=== PATIENT | female | born 1945 | race Caucasian/White ===

== ENCOUNTER 2020-11-10 08:52 | Emergency (ER) | payer SELFPAY ==
--- NOTE | 2020-11-10 09:12 | EDM.PDOC ---
ED HPI GENERAL MEDICAL PROBLEM - General Chief Complaint: Laceration Stated Complaint: RT THUMB FINGER LAC Time Seen by Provider: 11/10/20 09:08 Source of Information: Reports: Patient History Limitations: Reports: No Limitations - History of Present Illness INITIAL COMMENTS - FREE TEXT/NARRATIVE: The patient presents with a right thumb injury. The patient [place] from out of town and she was loading up her trunk and she shut the trunk and her right thumb was still in the trunk. She has a laceration to her right thumb with pain. Her tetanus is up to date and she is right handed. Onset: Sudden Duration: Minutes: Location: Reports: Upper Extremity, Right (thumb) Quality: Reports: Sharp Severity: Moderate Improves with: Reports: Immobilization Worsens with: Reports: Movement Associated Symptoms: Reports: No Other Symptoms - Related Data Allergies Allergy/AdvReac Type Severity Reaction Status Date / Time No Known Allergies Allergy Verified 11/10/20 09:05 Home Meds: Home Meds . [Unable to Verify Home Med List] 11/10/20 [History] Social & Family History - Tobacco Use Tobacco Use Status *Q: Never Tobacco User Second Hand Smoke Exposure: No - Caffeine Use Caffeine Use: Reports: None - Recreational Drug Use Recreational Drug Use: No ED ROS GENERAL - Review of Systems Review Of Systems: See Below Constitutional: Reports: No Symptoms HEENT: Reports: No Symptoms Respiratory: Reports: No Symptoms Cardiovascular: Reports: No Symptoms Endocrine: Reports: No Symptoms GI/Abdominal: Reports: No Symptoms : Reports: No Symptoms Musculoskeletal: Reports: Other (thumb laceration and pain) ED EXAM, SKIN/RASH Exam: See Below Exam Limited By: No Limitations General Appearance: Alert, No Apparent Distress Ears: Normal External Exam Nose: Normal Inspection Head: Atraumatic, Normocephalic Neck: Normal Inspection Respiratory/Chest: No Respiratory Distress Extremities: Other (right thumb has pain upon palpation and a 1.5cm laceration to the base of the nail. Good sensation and capillary refill distally.) ED SKIN PROCEDURES - Laceration/Wound Repair Right Digit - 1st (Thumb) Appearance: Superficial Distal NVT: Neuro & Vascular Intact, No Tendon Injury Skin Prep: Saline Exploration/Debridement/Repair: Wound Explored, In a Bloodless Field, Explored to Base Closed with: Wound Adhesive Lac/Wound length In cm: 1.5 Tetanus Status Addressed: Yes Complications: No Course - Vital Signs Last Recorded V/S: Last Vital Signs Temp 98.6 F 11/10/20 09:02 Pulse 115 H 11/10/20 09:02 Resp 12 11/10/20 09:02 BP 193/104 H 11/10/20 09:02 Pulse Ox 96 11/10/20 09:02 - Orders/Labs/Meds Orders: Active Orders 24 hr Category Date Time Status Fingers Thumb Rt F5 [CR] Stat Exams 11/10/20 09:08 Taken - Re-Assessments/Exams Free Text/Narrative Re-Assessment/Exam: 11/10/20 09:12 I have ordered an x-ray of her thumb. 11/10/20 09:34 The x-ray looks good. I used adhesive to close the wound. Departure - Departure Time of Disposition: 09:35 Disposition: Home, Self-Care 01 Condition: Good Clinical Impression: Crush injury to thumb Qualifiers: Encounter type: initial encounter Laterality: right Qualified Code(s): S67.01XA - Crushing injury of right thumb, initial encounter Laceration of right thumb Qualifiers: Encounter type: initial encounter Damage to nail status: without damage Foreign body presence: without foreign body Qualified Code(s): S61.011A - Laceration without foreign body of right thumb without damage to nail, initial encounter - Discharge Information *PRESCRIPTION DRUG MONITORING PROGRAM REVIEWED*: Not Applicable *COPY OF PRESCRIPTION DRUG MONITORING REPORT IN PATIENT [facility]: Not Applicable Forms: ED Department Discharge Additional Instructions: Let the adhesive set up for a couple of hours and then you can wash your hand like normal. The adhesive will wear off over the next week to 10 days. Look for any signs of infection such as redness, swelling, pain or drainage. If you see any of these signs, see your doctor you may need oral antibiotics. Do not put any antibiotic ointment on the adhesive. That will break it down. Take tylenol or mortin for any pain. Sepsis Event Note (ED) - Evaluation Sepsis Screening Result: No Definite Risk - Focused Exam Vital Signs: Vital Signs Temp Pulse Resp BP Pulse Ox 11/10/20 09:02 98.6 F 115 H 12 193/104 H 96 - My Orders Last 24 Hours: My Active Orders 11/10/20 09:08 Fingers Thumb Rt F5 [CR] Stat - Assessment/Plan Last 24 Hours: My Active Orders 04/18/21 09:08 Fingers Thumb Rt F5 [CR] Stat
--- NOTE | 2020-11-10 13:13 | CR ---
Right thumb: 3 views of the right thumb were obtained. Comparison: No previous thumb or hand exam is available. 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 Mild joint space narrowing is noted within the IP joint. No acute fracture, dislocation or other bony abnormality is seen. Impression: 1. Degenerative change as noted above. 2. No acute osseous abnormality is appreciated. Diagnostic code #2
== END 2020-11-10 09:41 | disposition home or self-care (01) ==
LOC: JD.ED 08:52
DX: S67.01XA Crushing injury of right thumb, initial encounter (principal); W23.0XXA Caught, crushed, jammed, or pinched between moving objects, initial encounter
CPT/HCPCS: 12001; 73140-26-F5; 73140-F5; 99282; 99283-25